=== PATIENT | female | born 1930 | race Caucasian/White ===

== ENCOUNTER 2016-07-30 10:38 | Inpatient (IN) | payer MEDICARE, OTHER ==
[~2016-07-30] VITALS: Ht 172.7 cm; Wt 90.7 kg
[2016-07-30 11:44] LABS: HEMOGLOBIN 20.9 gm/dl (12.3-15.3); RED BLOOD COUNT 6.51 M/UL (4.00-5.10)
[2016-07-30 11:57] LABS: WHITE BLOOD COUNT 30.1 K/UL (4.5-11.0)
[2016-07-30] MEDS ORDERED: PROTONIX 40 MG40 M1 PO (16:51)
[2016-07-30] MEDS ORDERED: MIRALAX17 GM PO (16:52)
[2016-07-30] MEDS ORDERED: TOLTERODINE TART4 MG PO (16:53)
[2016-07-30] MEDS ORDERED: TRAZODONE HCL50 MG PO (16:54)
[2016-07-30] MEDS ORDERED: VITAMIN D 11000 UNIT PO (16:55)
[2016-07-30] MEDS ORDERED: FLONASE 0.05% N16 GM (16:58)
[2016-07-30] MEDS ORDERED: LIDODERM PATCH 51 EA EXT (16:59)
[2016-07-30] MEDS ORDERED: NEURONTIN 300300 MG PO (17:00)
[2016-07-30] MEDS ORDERED: OXYCODONE HCL E20 MG PO (17:00)
[2016-07-30] MEDS ORDERED: ALPRAZOLAM0.5 MG PO (17:01)
[2016-07-30] MEDS ORDERED: TYLENOL 500 MG500 MG PO (17:02)
[2016-07-30] MEDS ORDERED: BISCOLAX10 MG PR (17:05)
[2016-07-30] MEDS ORDERED: HEMORRHOIDAL PR ×2 (17:06→17:07)
[2016-07-30] MEDS ORDERED: CONSTULOSE10 GM/15 M PO (17:07)
[2016-07-30] MEDS ORDERED: CLARITIN 10MG T10 MG PO (17:08)
[2016-07-30] MEDS ORDERED: VOLTAREN 0.1%2.5 ML EXT (17:10)
[2016-07-30] MEDS ORDERED: PROCTOZONE-HC30 GM EXT (17:11)
[2016-07-30] MEDS ORDERED: ZINC OXIDE57 GM TOP (17:13)
[2016-07-30] MEDS ORDERED: REFRESH PLUS 0.41 EA OP ×2 (17:13→17:14)
[2016-07-30] MEDS ORDERED: [UNRECOGNIZED DRUG - OTHER] PO (17:16)
[2016-07-30] MEDS ORDERED: PLAVIX 75 MG TA75 MG PO (17:16)
[2016-07-30] MEDS ORDERED: DOCUSATE CALCIUM PO (17:17)
[2016-07-30] MEDS ORDERED: ARICEPT5 MG PO (17:18)
[2016-07-30] MEDS ORDERED: CYMBALTA60 MG PO (17:18)
[2016-07-30] MEDS ORDERED: FERROUS SULFAT325 M2 PO (17:19)
[2016-07-30] MEDS ORDERED: MULTIVITAMINS1 EAC1 PO (17:19)
[2016-07-31 03:57] LABS: HEMOGLOBIN 18.1 gm/dl (12.3-15.3); RED BLOOD COUNT 5.65 M/UL (4.00-5.10); WHITE BLOOD COUNT 30.9 K/UL (4.5-11.0)
[2016-07-31 04:14] LABS: BUN/CREATININE RATIO 38 (0-10)
[2016-08-01 04:44] LABS: RED BLOOD COUNT 4.86 M/UL (4.00-5.10); WHITE BLOOD COUNT 18.2 K/UL (4.5-11.0)
[2016-08-01 04:45] LABS: HEMOGLOBIN 15.2 gm/dl (12.3-15.3)
[2016-08-02 03:59] LABS: WHITE BLOOD COUNT 22.3 K/UL (4.5-11.0)
[2016-08-02 04:00] LABS: RED BLOOD COUNT 4.13 M/UL (4.00-5.10)
[2016-08-02 04:01] LABS: HEMOGLOBIN 13.1 gm/dl (12.3-15.3)
[2016-08-02 04:13] LABS: BUN/CREATININE RATIO 47 (0-10)
[2016-08-03 04:12] LABS: HEMOGLOBIN 13.1 gm/dl (12.3-15.3); RED BLOOD COUNT 4.22 M/UL (4.00-5.10); WHITE BLOOD COUNT 21.8 K/UL (4.5-11.0)
[2016-08-03 04:23] LABS: BUN/CREATININE RATIO 49 (0-10)
[2016-08-05 03:39] LABS: RED BLOOD COUNT 4.53 M/UL (4.00-5.10)
[2016-08-05 03:58] LABS: BUN/CREATININE RATIO 30 (0-10)
[2016-08-06 03:38] LABS: HEMOGLOBIN 13.9 gm/dl (12.3-15.3); RED BLOOD COUNT 4.42 M/UL (4.00-5.10)
[2016-08-06] MEDS ORDERED: LEVAQUIN500 MG PO (09:42)
[2016-08-06] MEDS ORDERED: LACTINEX PACKET1 PKT PO (09:44)
[2016-08-06] MEDS ORDERED: COREG 3.125M3.125 MG PO (09:45)
[2016-08-06] MEDS ORDERED: MYCOSTATIN POWD15 GM TP (09:48)
== END 2016-08-06 09:00 | DRG 871 ==
LOC: ER1 10:38 → ZEROF 14:07 → CCU 16:19
PROVIDERS: Emergency Medicine; Internal Medicine Nephrology; ADMIT Internal Medicine
DX: A41.9 Sepsis, unspecified organism (principal); R65.21 Severe sepsis with septic shock; N30.00 Acute cystitis without hematuria; C91.10 Chronic lymphocytic leukemia of B-cell type not having achieved remission; N17.9 Acute kidney failure, unspecified; A04.7 Enterocolitis due to Clostridium difficile; K56.7 Ileus, unspecified; E87.2 Acidosis; J98.11 Atelectasis; Z66 Do not resuscitate; B37.2 Candidiasis of skin and nail; M48.07 Spinal stenosis, lumbosacral region; F01.50 Vascular dementia, unspecified severity, without behavioral disturbance, psychotic disturbance, mood disturbance, and anxiety; R19.7 Diarrhea, unspecified; D75.1 Secondary polycythemia; E87.5 Hyperkalemia; N18.3 Chronic kidney disease, stage 3 (moderate); K59.03 Drug induced constipation; B96.1 Klebsiella pneumoniae [K. pneumoniae] as the cause of diseases classified elsewhere; R09.02 Hypoxemia; R53.1 Weakness; M51.36 Other intervertebral disc degeneration, lumbar region; E83.42 Hypomagnesemia; E87.6 Hypokalemia; Z88.6 Allergy status to analgesic agent; Z88.8 Allergy status to other drugs, medicaments and biological substances; Z79.891 Long term (current) use of opiate analgesic; Z79.1 Long term (current) use of non-steroidal anti-inflammatories (NSAID); Z79.899 Other long term (current) drug therapy
CPT/HCPCS: 36415; 51702; 70450; 71010; 74000; 80048; 80053; 80076; 80202; 81001; 82248; 82436; 82550; 82553; 82803; 82962; 83605; 83735; 83874; 83880; 84132; 84133; 84300; 84484; 85025; 85027; 85610; 85730; 87040; 87077; 87086; 87186; 93005; 94640; 94664; 96365; 96366; 96368; 97110; 99285; C9113; J0692; J0713; J1265; J1956; J2550; J3370; J7030; J7050; J7070; Q0163